=== PATIENT | male | born 1980 | race African-American/Black ===

== ENCOUNTER 2025-03-05 04:40 | Emergency (ER) | payer SELFPAY ==
[2025-03-05 04:45] VITALS: BP 112/71
--- NOTE | 2025-03-05 05:21 | ED.GENMED ---
History of Present Illness
General
Chief Complaint: Social Service Referral
Source: patient and ambulance crew
Exam Limitations: other (Patient marginally cooperative.)
Time Seen by Provider: 03/05/25 04:44
Nursing documentation reviewed up to this point in time: agreed with
History of Present Illness
History of Present Illness:
The patient is a 44-year-old male who was brought to the emergency department by EMS after being found by police wandering the streets of [place]. He is apparently originally from [place]. Unclear as to how or how long he has been in this area;
he is noted to be homeless and was looking for a place to sleep for the night due to hot weather conditions. Upon evaluation, the patient reports 'I just need a place to sleep,' indicating that his primary concern was long term rather than a medical
issue. There are no acute medical complaints or specific symptoms attributed to the reason for emergency care. He denies pain, denies recent injuries. He denies feeling depressed or suicidal. He denies drug or alcohol use.
He has been offered case management/social service consult which he kindly declines.
He has excepted a box lunch and several beverages to drink which he is appreciative.
As above, his only request is to sleep here for the night.
Past History
Past History
ED Past Medical History: Other (Low back pain)
ED Past Surgical History: Orthopedic (Back surgery)
Social History
Tobacco: Non-smoker
Alcohol: None
Drug: None
Personal: Single
Living: homeless
Family History
Family History: Unable to obtain
Phy Exam
Physical Exam
Physical Exam:
GENERAL: 44-year-old gentleman appears his stated age, awake and alert. Somewhat guarded, soft-spoken. Appears in no acute distress. Mildly disheveled. Cooperative and well mannered.
EYE: pupils equal and reactive. anicteric
NECK: Supple, nontender, no meningismus, no significant adenopathy.
ENT: oral mucosa is moist. No rhinorrhea.
CARDIAC: Regular rate and rhythm. no murmur.
LUNGS: Clear breath sounds bilaterally, no acute respiratory distress, no wheezes/rales/rhonchi
ABDOMEN: Soft, nondistended, without focal tenderness
NEUROLOGICAL: Alert and oriented x3, no focal neuro deficits. Gait is isaac and steady.
SKIN: Warm and dry, normal color, skin intact. No rash.
MUSCULOSKELETAL: No C/C/E. peripheral pulses are full and equal b/l. No palpable tenderness.
PSYCH: Guarded, soft-spoken. Normal speech pattern. Denies depression, denies suicidal thoughts or plan. Denies hallucinations. Denies drug use.
Course
Vital Signs
Initial and Last Documented VS:
Initial Vital Signs
Pulse Resp BP Pulse Ox
82 18 112/71 95
03/05/25 04:45 03/05/25 04:45 03/05/25 04:45 03/05/25 04:45
Last Documented Vital Signs
Pulse Resp BP Pulse Ox
82 18 112/71 95
03/05/25 04:45 03/05/25 04:45 03/05/25 04:45 03/05/25 04:45
MDM/Problems Addressed
Differential Diagnosis Includes:
Homeless individual, found wandering the streets by police.
Concern for potential psychiatric illness, concern for potential drug abuse history.
No definitive evidence of drug use/toxidrome on physical exam. No evidence of acute psychiatric illness.
He remains cooperative, declines medical evaluation. He declines social service consult.
Chronic conditions affecting care: Other (Homelessness. Concern for potential psychiatric illness.)
*Pulse Oximetry
SaO2: 95
Oxygen Mode of Delivery: Room air
Patient hypoxic: no
*Critical Care Note
Total Time (30-74mins, 75-104mins- exclusive of procedures): Not Applicable
Patient Management
Social determinants of health affecting care: Living situation
Escalation/DeEscalation of care consider admission/obs:
The patient is currently experiencing homelessness and was primarily seeking long term for the night due to the hot weather. He does not appear to have a permanent residence and is not staying with family or friends. Assistance with finding a place to
stay was offered, including a potential case management consult which he declines.
He has been provided a box lunch as well as bed for the night.
Plan for discharge this morning.
To consider CM if pt changes his mind.
ED Attending Note
-
Portions of this chart may have been created with voice recognition software.� Occasional wrong word or��sound alike� substitutions may have occurred due to the inherent limitations of voice recognition software.
Discharge Plan
Departure
Patient Disposition: Home (Routine Discharge)
Date of Disposition: 03/05/25
Time of Disposition: 05:27
Patient with high blood pressure during this ER visit?: No
Condition: Good
Discharge Problem:
Homelessness
Referrals:
[facility] [Outside]
[facility] [Outside]
NONE,* [Family Provider, Internal Medicine]
Interventions
Interventions:
*Risk Screen - Suicide Last Done: 03/05/25 04:45
*General Assessment Last Done: 03/05/25 04:45
*Neglect/Abuse Screening Last Done: 03/05/25 04:45
*ED- Fall Risk Assessment Last Done: 03/05/25 04:45
*ED COVID-19 Vaccine History Last Done: 03/05/25 04:45
ED-Psychological Assessment Last Done: 03/05/25 05:02
Discharge Date and Time
Print Language: ANDORRAN
[2025-03-05 11:30] VITALS: BP 114/80
== END 2025-03-05 11:58 | disposition home or self-care (01) ==
LOC: EMR 04:40
PROVIDERS: EMERGENCY PHYSICIAN Emergency Medicine
DX: Z00.8 Encounter for other general examination (principal); Z59.01 Sheltered homelessness
CPT/HCPCS: 99282